=== PATIENT | male | born 1940 | race Caucasian/White ===

== ENCOUNTER 2017-06-19 08:15 | Day surgery (SDC) | payer OTHER | END 2017-06-19 17:30 | disposition home or self-care (01) | LOC: U 08:15 → CIR.AMB 08:15 → EDBD 09:15 → CIR.AMB 17:30 | DX: K40.90 Unilateral inguinal hernia, without obstruction or gangrene, not specified as recurrent (principal) ==

== ENCOUNTER 2020-12-27 14:09 | Emergency (ER) | payer OTHER ==
[~2020-12-27] VITALS: Ht 160 cm; Wt 49.9 kg
== END 2020-12-28 18:02 | disposition home or self-care (01) ==
LOC: ER 14:09
DX: R53.1 Weakness (principal); R42 Dizziness and giddiness; R47.81 Slurred speech; G45.9 Transient cerebral ischemic attack, unspecified; G31.9 Degenerative disease of nervous system, unspecified; Z03.818 Encounter for observation for suspected exposure to other biological agents ruled out
CPT/HCPCS: 70551